=== PATIENT | male | born 1980 | race Caucasian/White ===

== ENCOUNTER 2016-07-19 16:57 | Emergency (ER) | payer BC ==
[2016-07-19 17:12] VITALS: BP 138/78
[2016-07-19] MEDS ORDERED: Lidocaine 1% 50 ML MDV INJECT ONE (17:38)
[2016-07-19] MEDS ORDERED: Diphtheria,Pertussis(Acell),Tetanus Vaccine 0.5 ML SDV inactive IM ONE (17:38)
--- NOTE | 2016-07-19 17:38 | EDM.PDOC ---
ED HPI Skin/Rash - General Chief Complaint: Laceration Stated Complaint: LEFT ARM PUNCTURE WOUND Time Seen by Provider: 07/19/16 17:28 - History of Present Illness INITIAL COMMENTS - FREE TEXT/NARRATIVE: 36 yo male presents emergency room with laceration to his left forearm. This occurred at 2:00 this afternoon the patient was using very dirty scraper to remove some adhesive off somewhat scraper previously been used to clean stoves with some fairly harsh chemicals. The patient watch this for a while then noticed that he was developing swelling around the laceration site. The corner of the scraper it was a couple inches long down into the skin probably did not go deeper than a quarter of an inch. His last tetanus shot they believe was in 2006 - Related Data Allergies Allergy/AdvReac Type Severity Reaction Status Date / Time Penicillins Allergy Cannot Verified 07/19/16 17:06 Remember Home Meds: Ambulatory Orders Medication Instructions Recorded Confirmed Doxycycline Hyclate 100 mg PO Q12H #14 capsule 07/19/16 Past Medical History HEENT History: Reports: Impaired vision Psychiatric History: Reports: Anxiety Other Psychiatric History: currently taking anti-anxiey meds - Past Surgical History HEENT Surgical History: Reports: Other (see below) Other HEENT Surgeries/Procedures: wisdom teeth ED ROS GENERAL - Review of Systems Review Of Systems: See Below Constitutional: Reports: no symptoms Respiratory: Reports: No Symptoms Cardiovascular: Reports: No symptoms GI/Abdominal: Reports: No symptoms ED EXAM, SKIN/RASH Exam: See Below Exam Limited By: No limitations General Appearance: alert, no apparent distress Respiratory/Chest: no respiratory distress, lungs clear, normal breath sounds Cardiovascular: regular rate, rhythm, no edema, no murmur Extremities: other (Examination his left forearm shows a laceration that penetrated the skin this is less than a centimeter in length in oblique orientation on the flexor surface of his forearm three fourths the way down his forearm. Patient has intact sensation he has some discomfort on the flexor surface of the arm for 2-3 cm around the laceration he has some swelling and bruising developing around this most likely due to a formed hematoma under this. Neurovascular status of the hand is normal all tendon function of the wrist and digits is normal supination and pronation of the forearm is normal) ED SKIN PROCEDURES - Laceration/Wound Repair Left Distal Arm Lac/wound length in cm: 1.0 Appearance: subcutaneous Distal NVT: neuro & vascular intact, no tendon injury Anesthetic type: local Local anesthesia - Lidocaine (Xylocaine): 1% plain Local anesthetic volume: 2cc Skin prep: saline Exploration/Debridement/Repair: wound explored, in a bloodless field, explored to base Closed with: sutures Suture size: 4-0 # of sutures: 2 Suture type: nylon, simple Sterile dressing applied: nurse Tetanus status addressed: Yes (Tetanus updated) Complications: No Course - Vital Signs Last Recorded V/S: Last Vital Signs Temp 37.1 C 07/19/16 17:06 Pulse 66 07/19/16 17:06 Resp 14 07/19/16 17:06 BP 138/78 07/19/16 17:06 Pulse Ox 98 07/19/16 17:06 - Orders/Labs/Meds Orders: Active Orders 24 hr Category Date Time Status Vaccines to be Administered [RC] PER UNIT ROUTINE Care 07/19/16 17:39 Active Meds: Medications Discontinued Medications Generic Name Dose Route Start Last Admin Trade Name Roz PRN Reason Stop Dose Admin Diphtheria/Tetanus/Acell Pertussis 0.5 ml 07/19/16 17:38 07/19/16 17:46 Boostrix IM 07/19/16 17:39 0.5 ml .ONCE ONE Administration Lidocaine HCl 50 ml 07/19/16 17:38 07/19/16 17:45 Xylocaine 1% INJECT 07/19/16 17:39 50 ml ONETIME ONE Administration Departure - Departure Time of Disposition: 18:12 Disposition: Home, Self-Care 01 Clinical Impression: Laceration of left forearm Prescriptions: Doxycycline Hyclate 100 mg PO Q12H #14 capsule Forms: ED Department Discharge Additional Instructions: Return to emergency room if any questions or problems. Suture removal in 10 days. You have been started on doxycycline this is an antibiotic take this twice daily until gone. Keep wound completely clean and dry. After 24 hours she can let water gently run over it for only a few seconds and then gently dab dry. Keep wound clean and dry and covered while working to - My Orders Last 24 Hours: My Active Orders 07/19/16 17:39 Vaccines to be Administered [RC] PER UNIT ROUTINE - Assessment/Plan Last 24 Hours: My Active Orders 07/19/16 17:39 Vaccines to be Administered [RC] PER UNIT ROUTINE
== END 2016-07-19 18:30 | disposition home or self-care (01) ==
LOC: JD.ED 16:57
DX: S51.812A Laceration without foreign body of left forearm, initial encounter (principal); F41.9 Anxiety disorder, unspecified; H54.7 Unspecified visual loss; Z88.0 Allergy status to penicillin; Z23 Encounter for immunization; X58.XXXA Exposure to other specified factors, initial encounter
CPT/HCPCS: 12001; 90471; 90715; 99283; 99283-25